=== PATIENT | male | born 1945 | race Caucasian/White ===

== ENCOUNTER 2018-06-28 18:10 | Emergency (ER) | payer MEDICARE, BC ==
[~2018-06-28] VITALS: Ht 165.1 cm; Wt 85.0 kg
[~2018-06-28 18:10] MED LIST: ADVANCED FIBER COMPL PO; ASPIRIN 81 LOW81 MG PO; ELIQUIS5 MG PO; FISH OIL1000 MG PO; HYDROCHLOROT25 MG PO; TAMSULOSIN0.4 MG PO
[2018-06-28] MEDS ORDERED: TRAMADOL HCL50 MG PO (18:27)
[2018-06-28 18:33] VITALS: BP 139/73
== END 2018-06-28 18:40 | disposition home or self-care (01) ==
LOC: ED 18:10
DX: I82.441 Acute embolism and thrombosis of right tibial vein (principal); I10 Essential (primary) hypertension; E78.00 Pure hypercholesterolemia, unspecified

== ENCOUNTER 2022-11-01 13:10 | Inpatient (IN) | payer MEDICARE, BC ==
[~2022-11-01] VITALS: Ht 165.1 cm; Wt 86.3 kg
[2022-11-01] VITALS (9 sets, daily range): BP systolic 140–190; BP diastolic 41–152
[~2022-11-01 13:10] MED LIST changes: +FISH OIL 1000 M1 CAP PO; -FISH OIL1000 MG PO; +TRAMADOL HCL50 MG PO
[2022-11-01 13:54] LABS: BASO% 0.7 % (0-3); EOS% 2.4 % (0-8); HEMATOCRIT 44.6 % (39.0-50.0); HEMOGLOBIN 14.9 g/dl (14.0-18.0); IMMATURE GRANULOCYTES 0.1 % (0.0-5.0); LYMPH% 14.3 % (15-41); MEAN CELL VOLUME 82.7 fL CALC (80.0-100.0); MEAN CORPUSCULAR HGB 27.6 pG CALC (26.0-32.0); MEAN CORPUSCULAR HGB CONC 33.4 g/dL CAL (32.0-36.0); NEUT# 5.5 thou/uL (1.82-7.42); NEUT% 74.5 % (42-76); RED BLOOD COUNT 5.39 mill/uL (4.70-6.10); RED CELL DISTRI WIDTH 12.9 % (11.5-15.5)
[2022-11-01 14:06] LABS: ALBUMIN 4.8 g/dL (3.2-5.0); ALKALINE PHOSPHATASE 66 u/l (38-126); BILIRUBIN, TOTAL 0.6 mg/dL (0.2-1.3); BUN 15 mg/dL (8-23); BUN/CREATININE RATIO 19 (12-20 (CALC)); CARBON DIOXIDE 26 mmol/l (22-30); CHLORIDE 103 mmol/l (95-108); CREATININE 0.8 mg/dL (0.7-1.3); GFR FOR AFR.AMER. > 60 ML/MIN (>=60 (CALC)); GFR OTHER RACES > 60 ML/MIN (>=60 (CALC)); LIPASE 38 u/l (23-300); SGOT/AST 27 u/l (19-48); SODIUM 138 mmol/l (137-146); TOTAL PROTEIN 7.2 g/dL (6.3-8.2)
[2022-11-01 14:08] LABS: ANION GAP 13 (6-22 (CALC)); POTASSIUM 3.7 mmol/l (3.5-5.1)
[2022-11-01 15:31] LABS: URINE BILIRUBIN - DIPSTICK NEGATIVE (NEGATIVE); URINE BLOOD DIPSTICK NEGATIVE (NEGATIVE); URINE COLOR YELLOW; URINE GLUCOSE - DIPSTICK NEGATIVE (NEGATIVE); URINE KETONE NEGATIVE (NEGATIVE); URINE LEUK ESTERASE NEGATIVE (NEGATIVE); URINE PROTEIN - DIPSTICK NEGATIVE (NEG-TRACE); URINE SPECIFIC GRAVITY >=1.030; URINE UROBILINOGEN - DIPSTICK 0.2 E.U./dL (0.2)
[2022-11-01 16:04] LABS: URINE NITRITE - DIPSTICK NEGATIVE (Negative)
[2022-11-02 04:30] VITALS: BP 142/71
[2022-11-02 05:44] VITALS: BP 129/70
[2022-11-02 06:56] LABS: ANION GAP 11 (6-22 (CALC)); BUN 14 mg/dL (8-23); BUN/CREATININE RATIO 18 (12-20 (CALC)); CARBON DIOXIDE 26 mmol/l (22-30); CHLORIDE 103 mmol/l (95-108); CREATININE 0.8 mg/dL (0.7-1.3); GFR FOR AFR.AMER. > 60 ML/MIN (>=60 (CALC)); GFR OTHER RACES > 60 ML/MIN (>=60 (CALC)); POTASSIUM 3.6 mmol/l (3.5-5.1); SODIUM 137 mmol/l (137-146)
[2022-11-02] MEDS ORDERED: ROSUVASTATIN CA10 MG PO (14:39)
[2022-11-02] MEDS ORDERED: CIALIS20 MG PO (14:39)
== END 2022-11-02 16:42 | disposition home or self-care (01) | DRG 390 ==
LOC: ED 13:10 → ED-I 13:49 → ED 18:25 → MS2 18:26
PROVIDERS: Family Medicine; ADMIT Surgery; ATTEND Internal Medicine
DX: K56.50 Intestinal adhesions [bands], unspecified as to partial versus complete obstruction (principal); I10 Essential (primary) hypertension; E78.00 Pure hypercholesterolemia, unspecified
CPT/HCPCS: Q9967; S0164